=== PATIENT | female | born 2000 | race Caucasian/White ===

== ENCOUNTER 2022-12-23 08:35 | Emergency (ER) | payer MEDICAID ==
[~2022-12-23] VITALS: Ht 157.5 cm; Wt 77.1 kg
[2022-12-23 08:44] VITALS: BP 132/85
--- NOTE | 2022-12-23 08:52 | NUR ---
AMBULATED TO BED 11
--- NOTE | 2022-12-23 08:57 | NUR ---
22 YO FEMALE BIBS. PATIENT C/O RLQ PAIN 8/10 THAT STARTED LAST NIGHT. PATIENT TOOK IBUPROFEN, STATED THE MEDICATION DID NOT HELP, NO PMH NOTED. NO ALLERGIES
--- NOTE | 2022-12-23 09:18 | NUR ---
PT GOWNED, ON MONITOR, URINE COLLECTED
[2022-12-23] MEDS ORDERED: KETOROLAC 30 MG/ML VIAL IVP ONE (09:30)
[2022-12-23] MEDS ORDERED: DIPHENOXYLATE /ATROPINE 2.5 MG TAB PO ONE (09:30)
[2022-12-23] MEDS ORDERED: NACL 0.9% 1,000 ML IV SCH (09:30)
[2022-12-23 09:36] LABS: BASOPHILS # (AUTO) 0.1 K/uL (0.00-0.22); BASOPHILS % (AUTO) 0.7 % (0.0-2.0); EOSINOPHILS # (AUTO) 0.2 K/uL (0-0.4); EOSINOPHILS % (AUTO) 2.1 % (0.0-4.0); HEMATOCRIT 39.6 % (36-48); HEMOGLOBIN 13.9 g/dL (12.0-16.0); LYMPHOCYTES # (AUTO) 2.7 K/uL (2.5-16.5); LYMPHOCYTES % (AUTO) 22.9 % (20.5-51.1); MEAN CORPUSCULAR HEMOGLOBIN 32 pg (27-31); MEAN CORPUSCULAR HGB CONC 35 g/dL (33-37); MEAN CORPUSCULAR VOLUME 90.4 fL (80-94); MONOCYTES % (AUTO) 8.7 % (1.7-9.3); NEUTROPHILS # (AUTO) 7.8 K/uL (1.8-7.7); NEUTROPHILS % (AUTO) 65.6 % (42.2-75.2); PLATELET COUNT (AUTO) 200 K/uL (140-450); RED BLOOD CELL COUNT(AUTO) 4.38 MIL/uL (4.20-5.40); RED CELL DISTRIBUTION WIDTH 12.8 % (11.6-13.7); WHITE BLOOD COUNT (AUTO) 11.9 K/uL (4.8-10.8)
[2022-12-23 09:47] LABS: APPEARANCE,URINE CLEAR (CLEAR); BILIRUBIN,URINE NEGATIVE (NEGATIVE); BLOOD, URINE 3+ (NEGATIVE); COLOR,URINE YELLOW (YELLOW); LEUKOCYTE ESTERASE ,URINE NEGATIVE (NEGATIVE); NITRITE, URINE NEGATIVE (NEGATIVE); UGLUCOSE NEGATIVE (NEGATIVE)
[2022-12-23 09:54] LABS: ALBUMIN 4.1 g/dL (3.4-5.0); CARBON DIOXIDE 26.7 mmol/L (21-32); POTASSIUM 3.7 mmol/L (3.5-5.1); TOTAL BILIRUBIN 0.4 mg/dL (0.0-1.0)
[2022-12-23 10:17] LABS: WBC,URINE NONE SEEN /HPF (0-5)
[2022-12-23] MEDS ORDERED: SULF-58 PO (11:50)
[2022-12-23] MEDS ORDERED: NAPR-1704 PO (11:50)
[2022-12-23] MEDS ORDERED: ONDA-188 PO (11:50)
--- NOTE | 2022-12-23 12:04 | NUR ---
PT ABD PAIN RESOLVED, ACI GIVEN FOR UTI, RX GIVEN FOR NAPROXIN, ZOFRAN AND BACTRIM. QUESTIONS ANSWERED, STEADY GAIT HOME.
[2022-12-23 12:07] VITALS: BP 128/74
== END 2022-12-23 12:07 | disposition home or self-care (01) ==
LOC: MED 08:35
DX: R10.9 Unspecified abdominal pain (principal); R11.10 Vomiting, unspecified; Z79.899 Other long term (current) drug therapy; Z98.890 Other specified postprocedural states
CPT/HCPCS: 36415; 76705; 80053; 81001; 81025; 83690; 85025; 96361; 96374; 99285; J1885; Q0092